=== PATIENT | female | born 1990 ===

== ENCOUNTER 2019-02-21 14:06 | Outpatient (CLI) | payer OTHER ==
--- NOTE | 2019-02-22 07:27 | RAD ---
EXAM: XR Lumbar Spine Bending Min 4V PROVIDED CLINICAL HISTORY: Sacroiliitis COMPARISON: None FINDINGS: There are 5 nonrib-bearing lumbar-type vertebral bodies. There is mild loss of height of the L5-S1 in tervertebral disc space. Remaining intervertebral disc spaces as well as vertebral body heights are within normal limits. No fracture or subluxation is seen involving lumbar spine. The sacroiliac joints have a symmetric and overall normal appearance on frontal radiograph. IMPRESSION: No fracture or subluxation involving the lumbar spine.
== END 2019-02-21 14:07 | disposition home or self-care (01) ==
LOC: RAD 14:06
PROVIDERS: ATTEND Nurse Practitioner Family
DX: M46.1 Sacroiliitis, not elsewhere classified (principal)
CPT/HCPCS: 72120

== ENCOUNTER 2019-05-11 13:58 | Outpatient (CLI) | payer OTHER ==
--- NOTE | 2019-05-11 15:54 | MRI ---
MRI LUMBAR SPINE WITHOUT CONTRAST: Date: 05/11/19 Multiplanar, multisequential imaging. INDICATION: Lumbar radiculopathy. FINDINGS: Lumbar vertebra maintain normal height and alignment. The disc spaces are maintained. Slight posterol isthesis at L5-S1. Alignment is otherwise normal. No significant disc bulge or disc protrusion seen at L1-2, L2-3, L3-4, and L4-5 levels. There is mild facet arthrosis at these levels; however, no central canal or foraminal stenosis. At L5-S1, there is evidence of a small annular fissure, and there is diffuse disc bulge flattening th e anterior thecal sac. Mild facet arthrosis. No significant central canal stenosis. No foraminal sten osis. There is evidence of a large cyst involving the posterior left kidney which measures up to 3.7 cm. Th ere is a smaller 1.0 cm cyst in the mid pole of left kidney. IMPRESSION: Small annular fissure at L5-S1 with broad based disc bulge at this level flattening the thecal sac. M ild facet arthrosis. No evidence of significant central canal or foraminal stenosis. POS: OFF
== END 2019-05-11 13:59 | disposition home or self-care (01) ==
LOC: BICMRI 13:58
PROVIDERS: ATTEND Specialist
DX: M47.26 Other spondylosis with radiculopathy, lumbar region (principal)
CPT/HCPCS: 72148